=== PATIENT | female | born 2000 | race Caucasian/White ===

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

== ENCOUNTER → 2021-11-05 | Outpatient (CLI) | payer BC | LOC: KOH-I 10-27 13:00 | DX: E04.9 Nontoxic goiter, unspecified (principal); E07.9 Disorder of thyroid, unspecified | CPT/HCPCS: 76536 ==

== ENCOUNTER → 2022-01-20 | Outpatient (CLI) | payer BC | LOC: KOH-I 12-30 13:00 | DX: R93.89 Abnormal findings on diagnostic imaging of other specified body structures (principal); E04.2 Nontoxic multinodular goiter | CPT/HCPCS: 76536 ==